=== PATIENT | female | born 1970 | race Caucasian/White ===

== ENCOUNTER 2016-12-08 09:40 | Emergency (ER) | payer OTHER ==
[~2016-12-08] VITALS: Ht 160 cm; Wt 65.0 kg
[~2016-12-08 09:40] MED LIST: BUSP30TA PO; LORA-392 PO; LORTA5 PO; PRED20 PO; PROZ40CA PO; REBI44IN SQ; SILV1CRE59 TOP
[2016-12-08 09:42] VITALS: BP 144/91; PULSE 64; RESP 16; TEMP 98; O2SAT 99
[2016-12-08] MEDS ORDERED: FERR83TA PO (10:27)
[2016-12-08] MEDS ORDERED: LORA-373 PO (10:27)
[2016-12-08] MEDS ORDERED: VITA200013 PO (10:27)
[2016-12-08] MEDS ORDERED: PROZ40CA PO (10:27)
[2016-12-08] MEDS ORDERED: REBI44IN SQ (10:27)
[2016-12-08] MEDS ORDERED: BUSP30TA PO (10:27)
--- NOTE | 2016-12-08 10:44 | PD ---
HPI Chief Complaint: Complaint Time Seen by Provider: 10:29 Travel History International Travel<30 days: No Contact w/Intl Traveler<30days: No Traveled to known affect area: No History of Present Illness HPI Is a 38 year-old woman note endometrial fibroids, and the menorrhagia for the past several months, presents emergent from with 2 weeks of heavy menstrual bleeding. She's had an endometrial biopsy done. She was recommended for an inner sure endometrial ablation. She sees Dr. Gypsy jerome. She went to [facility] [employer] for the continued heavy bleeding this morning and was referred to the emergency department. Denies any other symptoms. No other complaints. History Past Medical History Narrative Medical MS, on interferon Influenza Vaccination: No LMP: 12/08/2016 Social History Alcohol Use: No Tobacco Use: No Allergies-Medications (Allergen,Severity, Reaction): Coded Allergies: No Known Allergies (Verified , 12/08/16) Reported Meds & Prescriptions Reported Meds & Active Scripts Active Reported Ferrous Sulfate 27 Mg Tab 27 Mg PO BID Vitamin D (Cholecalciferol) 2,000 Unit Cap 6,000 Units PO DAILY Lorazepam 0.5 Mg Tab 0.5 Mg PO DAILY PRN Prozac (Fluoxetine HCl) 40 Mg Cap 60 Mg PO DAILY Buspirone (Buspirone HCl) 30 Mg Tab 40 Mg PO TID Rebif Inj (Interferon Beta 1a) 44 Mcg/0.5 Ml Syr 44 Mcg SQ [id number] Review of Systems Except as stated in HPI: all other systems reviewed are Neg Physical Exam Narrative GENERAL: Generally well-appearing 38 year-old woman, no acute distress. SKIN: Warm and dry. HEAD: Atraumatic. Normocephalic. CARDIOVASCULAR: Regular rate and rhythm. No murmur appreciated. RESPIRATORY: No accessory muscle use. Clear to auscultation. Breath sounds equal bilaterally. GASTROINTESTINAL: Abdomen soft, non-tender, nondistended. Hepatic and splenic margins not palpable. MUSCULOSKELETAL: No obvious deformities. No edema. NEUROLOGICAL: Awake and alert. No obvious cranial nerve deficits. Motor grossly within normal limits. Normal speech. PELVIC: Some blood in the vaginal vault. Otherwise unremarkable. Mild diffuse tenderness. No appreciable uterine enlargement or adnexal masses. Data Data Last Documented VS Vital Signs Date Time Temp Pulse Resp B/P Pulse Ox O2 Delivery O2 Flow Rate FiO2 12/08/16 12:19 75 16 139/85 99 Room Air 12/08/16 09:42 98.0 Orders Complete Blood Count With Diff (12/08/16 10:39) Beta Hcg (Quant/Titer) (12/08/16 10:39) Iv Access Insert/Monitor (12/08/16 10:39) Labs Laboratory Tests Test 12/08/16 11:10 White Blood Count 5.9 TH/MM3 Red Blood Count 4.26 MIL/MM3 Hemoglobin 12.5 GM/DL Hematocrit 37.8 % Mean Corpuscular Volume 88.9 FL Mean Corpuscular Hemoglobin 29.4 PG Mean Corpuscular Hemoglobin 33.0 % Concent Red Cell Distribution Width 13.8 % Platelet Count 296 TH/MM3 Mean Platelet Volume 6.9 FL Neutrophils (%) (Auto) 64.0 % Lymphocytes (%) (Auto) 22.6 % Monocytes (%) (Auto) 9.0 % Eosinophils (%) (Auto) 4.1 % Basophils (%) (Auto) 0.3 % Neutrophils # (Auto) 3.8 TH/MM3 Lymphocytes # (Auto) 1.3 TH/MM3 Monocytes # (Auto) 0.5 TH/MM3 Eosinophils # (Auto) 0.2 TH/MM3 Basophils # (Auto) 0.0 TH/MM3 CBC Comment DIFF FINAL Differential Comment Human Chorionic Gonadotropin, LESS THAN 1 Quant MIU/ML MDM Medical Decision Making Medical Screen Exam Complete: Yes Emergency Medical Condition: Yes Interpretation(s) LABS: CBC unremarkable. Hemoglobin 12.5. Differential Diagnosis Menorrhagia, fibroids, being, other Narrative Course Medical decision making This a 46 year-old woman who presents emergency Department with heavy menstrual bleeding, previously evaluated by Dr. Mann with [facility]. Now with 2 weeks of heavy bleeding, changing her pad a couple times an hour. We'll check CBC, discussed with SYLVESTER hinkle, likely arrange for endometrial ablation. Diagnosis Primary Impression: Abnormal uterine bleeding (AUB) Additional Instructions: Follow-up with Dr. Mann on Saturday. Call the office to make an appointment. Return to the emergency department for any new or worsening symptoms. If bleeding continues more than one pad per hour, take Provera prescription as prescribed. Med/Other Pt SpecificInfo: Prescription(s) given, No Change to Meds Scripts Medroxyprogesterone Acetate (Provera)10 Mg Tab10 Mg PO DAILY #10 TAB Ref 0 Start day 16 Prov:Fredy Rolon MD 12/08/16 Disposition: 01 DISCHARGE HOME Condition: Stable Fredy Rolon MD Dec 08, 2016 10:44
[2016-12-08 11:45] LABS: AUTOMATED NEUTROPHIL # 3.8 TH/MM3 (1.8-7.7); BASOPHIL % 0.3 % (0.0-2.0); EOSINOPHIL # 0.2 TH/MM3 (0-0.4); EOSINOPHIL % 4.1 % (0.0-4.0); HEMATOCRIT 37.8 % (35.0-46.0); HEMO FLAGS DIFF FINAL; LYMPH % 22.6 % (9.0-44.0); LYMPHOCYTE # 1.3 TH/MM3 (1.0-4.8); MEAN CELL VOLUME 88.9 FL (80.0-100.0); MEAN CORPUSCULAR HEMOGLOBIN 29.4 PG (27.0-34.0); PLATELET COUNT 296 TH/MM3 (150-450); RED BLOOD COUNT 4.26 MIL/MM3 (4.00-5.30); RED CELL DISTRIBUTION WIDTH 13.8 % (11.6-17.2); WHITE BLOOD COUNT 5.9 TH/MM3 (4.0-11.0)
[2016-12-08 12:06] LABS: BETA HCG QUANT LESS THAN 1 MIU/ML (0-5)
[2016-12-08 12:19] VITALS: BP 139/85; PULSE 75; RESP 16; O2SAT 99
[2016-12-08] MEDS ORDERED: PROV10TA PO ×2 (12:48→13:24)
== END 2016-12-08 14:10 | disposition home or self-care (01) ==
LOC: NEPC 09:40
DX: N93.9 Abnormal uterine and vaginal bleeding, unspecified (principal)
CPT/HCPCS: 84702; 85025; 99283